=== PATIENT | male | born 1960 | race Caucasian/White ===

== ENCOUNTER 2016-07-14 07:44 | Inpatient (IN) | payer BC ==
--- NOTE | 2016-07-10 08:47 | PREOPHP ---
DATE OF ADMISSION: 07/14/2016 PREOPERATIVE INTERNAL MEDICINE CONSULTATION/MEDICAL HISTORY AND PHYSICAL REASON FOR ADMISSION: The patient to have surgery with Dr. James Galvan 07/14/2016. REASON FOR CONSULTATION: Consultation requested by Dr. James Galvan for medical evaluation and aye arance of a 56-year-old gentleman about to undergo surgery on his lumbar spine. Thank you, Dr. Galvan, for allowing us to participate in the care of this patient. HISTORY OF PRESENT ILLNESS: Lucas Grewal, a 56-year-old gentleman, issues with his back, has had 1 prior back surgery L3-5, is currently being admitted for the decompressive laminectomy at L4. In terms of other past surgeries, he has not had any. He has also had no medical hospitalizations. He has fractured his right heel. ALLERGIES: SENSITIVE TO IBUPROFEN. MEDICATIONS: Currently taking the following medications: 1. Zantac 150 mg a day. 2. Samantha 180 mg a day. SOCIAL HISTORY: The patient is , has 2 children. He does not smoke or drink alcohol, does d rink coffee, is employed and usually has no difficulty sleeping at night. FAMILY HISTORY: Father in his 80s, was a diabetic and of complications of the above. Mot her is 78, had cancer, but survived it, is also a diabetic and 2 siblings are alive. A brother is a lso diabetic. There is a strong family history of diabetes and cancer. No heart, hypertension or s troke to his knowledge. REVIEW OF SYSTEMS HEENT: Denies any significant headaches. CARDIORESPIRATORY: Denies any chest pain or shortness of breath. GASTROINTESTINAL: No melena or hematemesis. GENITOURINARY: No urgency, frequency. MUSCULOSKELETAL: Positive for back pain. NEUROPSYCHIATRIC: Unremarkable. GENERAL HEALTH: As above. PHYSICAL EXAMINATION: VITAL SIGNS: The patient's blood pressure was 122/60, pulse was 60 and regular, respirations were 1 8, temperature 98.2, height 5 feet 8 inches, weight 187 1/2 pounds. GENERAL: The patient was noted to be a well-developed, well-nourished male, alert and cooperative, in no apparent acute distress, oriented to time, place, and person. HEAD, EARS, EYES, NOSE AND THROAT: Head was atraumatic. Eyes: Pupils were equal, reactive to ligh t and accommodation. Fundi were benign. Tympanic membranes were unremarkable. Nose was negative. Mouth was unremarkable. Fair oral hygiene was present. NECK: Supple without any rigidity. Trachea was midline. Thyroid was unremarkable. Neck veins wer e flat. Carotid pulses were equal. No bruits were heard. BACK: Unremarkable. CHEST: Symmetrical. BREASTS AND AXILLARY: Did not reveal any masses. LUNGS: Clear to percussion and auscultation. HEART: PMI is fifth intercostal space at the midclavicular line. Regular sinus rhythm was noted. No significant murmurs, rubs, or gallops being elicited. ABDOMEN: Soft, good bowel sounds were noted. No significant organomegaly, masses, or tenderness. GENITALIA: Normal male external genitalia. RECTAL AND PROSTATIC: Per PCP. EXTREMITIES: Did not reveal any clubbing, edema or cyanosis. Peripheral pulses were physiologic. SKIN: Moist and warm without any eruptions. No gross lymphadenopathy was noted. NEUROLOGIC: Grossly intact. IMPRESSION 1. Lumbar stenosis and lumbar spine disorder, status post lumbar spine surgery. 2. Environmental allergies. 3. Gastroesophageal reflux disease. 4. Stable health. DISCUSSION: Review of laboratory and other data revealed the following: The patient's chemistry pa cindy revealed normal electrolytes, BUN, creatinine and liver function test, calcium being borderline, glucose random nonfasting was 110, but hemoglobin A1c was normal at 5.5. CBC, sed rate, UA, PT, PT T were normal as well. The patient's EKG was normal as was his chest x-ray. DISCUSSION: Dr. Galvan, I see no contraindication in this patient undergoing current proposed ronda francisco under desired form of anesthesia and I feel he is a suitable candidate at this particular point in time and I will be more than happy to follow him with you during his stay at [facility] . Thank you again, Dr. Galvan, for allowing us to participate in care of this patient. Dictated By: JULES PERALTA/FLYNN Conf#: [id number] DID#: [id number]
[~2016-07-14] VITALS: Ht 172.7 cm; Wt 84.0 kg
[2016-07-14] VITALS (30 sets, daily range): BP systolic 90–144; BP diastolic 53–83; PULSE 50–95; RESP 13–21; Ht 172.7 cm; Wt 84.0 kg
[~2016-07-14 07:44] MED LIST: CEFAZOLIN 2 GM/50 ML (PMX) 50 ML IVPB SCH; LACTATED RINGER'S 1,000 ML IV* SCH
[2016-07-14] MEDS ORDERED: PROPOFOL 20 ML ONE (08:22)
[2016-07-14] MEDS ORDERED: LIDOCAINE 2% (SDV) 5 ML INJ ONE (08:22)
[2016-07-14] MEDS ORDERED: GLYCOPYRROLATE 1 MG INJ ONE (08:22)
[2016-07-14] MEDS ORDERED: FENTAnyl 50 MCG/ML VIAL ONE (08:22)
[2016-07-14] MEDS ORDERED: ROCURONIUM 50 MG INJ ONE (08:22)
[2016-07-14] MEDS ORDERED: NEOSTIGMINE 3 MG/3 ML SYRINGE ONE (08:22)
[2016-07-14] MEDS ORDERED: MIDAZOLAM 1 MG/ML 2 ML INJ ONE (08:22)
[2016-07-14] MEDS ORDERED: HYDROmorphONE (0.2 MG/ML) 10ML SYG IV PRN ×2 (08:30)
[2016-07-14] MEDS ORDERED: LABETALOL HCL 20MG INJ IV PRN (08:30)
[2016-07-14] MEDS ORDERED: FENTAnyl 50 MCG/ML VIAL IV PRN (08:30)
[2016-07-14] MEDS ORDERED: MIDAZOLAM 1 MG/ML 2 ML INJ IV PRN (08:30)
[2016-07-14] MEDS ORDERED: DIPHENHYDRAMINE 50 MG INJ IV PRN (08:30)
[2016-07-14] MEDS ORDERED: MEPERIDINE 25 MG INJ IV PRN (08:30)
[2016-07-14] MEDS ORDERED: hydrALAzine 20 MG INJ IV PRN (08:30)
[2016-07-14] MEDS ORDERED: DEXAMETHASONE 4 MG/ML 1 ML INJ ONE (08:30)
[2016-07-14] MEDS ORDERED: OXYCODONE/ACETAMINOPHEN (5/325) TAB PO PRN ×2 (08:30)
[2016-07-14] MEDS ORDERED: ONDANSETRON 4 MG INJ IV PRN ×2 (08:30→14:30)
[2016-07-14] MEDS ORDERED: EPHEDrine SULFATE 50 MG/5 ML SYG IV PRN (08:30)
[2016-07-14] MEDS ORDERED: ONDANSETRON 4 MG INJ ONE ×2 (08:30→12:24)
[2016-07-14] MEDS ORDERED: morphine (1 MG/ML) 10ML SYRINGE IV PRN ×3 (08:30)
[2016-07-14] MEDS ORDERED: ATROPINE 1 MG/10 ML SYRINGE IV PRN (08:30)
[2016-07-14] MEDS ORDERED: RANI150T9 PO (08:50)
[2016-07-14] MEDS ORDERED: FEXO180T61 PO (08:50)
--- NOTE | 2016-07-14 10:59 | HPN ---
Date/Time of Note Date/Time of Note DATE: 07/14/16 TIME: 10:58 Interval H&P Admission Note Pt. seen H&P reviewed: No system changes JIGAR BROOKS MD Jul 14, 2016 10:58
[2016-07-14] MEDS ORDERED: POLYMYXIN/BACITRACIN 1L IRRIG ONE (11:07)
[2016-07-14] MEDS ORDERED: GELATIN SIZE 100 SPONGE ONE (11:07)
[2016-07-14] MEDS ORDERED: THROMBIN 5000 UNIT VIAL ONE (11:07)
[2016-07-14] MEDS ORDERED: BUPIVACAINE 0.25% (MPF) 10 ML 10 ML VIAL ONE (11:07)
[2016-07-14] MEDS ORDERED: LABETALOL HCL 20MG INJ ONE (12:06)
[2016-07-14] MEDS: HYDROmorphONE (0.2 MG/ML) 10ML SYG IV PRN ×3 (14:20→14:49)
--- NOTE | 2016-07-14 14:20 | OPR ---
Date/Time of Note Date/Time of Note DATE: 07/14/16 TIME: 14:14 Operative Report Procedure Date: Jul 14, 2016 Preoperative Diagnosis Severe spinal stenosis at L4 Herniated disc L4-5 on the left Postsurgical changes at L3 and L4 Postoperative Diagnosis Same Operation Performed Redo central decompressive laminectomy at L4 Partial central decompressive laminectomy at L3 Microdiscectomy L4-5 on the left Medial facetectomy and foraminotomy L4-5 bilaterally Revision of scar (12 cm) Lateral localizing lumbar radiographs (2) Intraoperative nerve monitoring (3-1/2 hours) Surgeon: JIGAR BROOKS MD sugar laboratory assistant: RJ ZUÑIGA MD Anesthesia: general Anesthesiologist: HARVEY BAUER MD Estimated Blood Loss: 10 - 50 ml's Specimens Disc material L4-5 on the left Tubes/Drains 2 medium Hemovac drain Complications: None Pt Condition Post Procedure: stable Disposition: PACU Operative\Procedure Findings At surgery, severe stenosis at L4 was confirmed. There was a small to moderate left paracentral herniation of the L4-5 disc. There was marked foraminal stenosis involving the left L5 nerve root. JIGAR BROOKS MD Jul 14, 2016 14:20
[2016-07-14] MEDS ORDERED: PROCHLORPERAZINE 10 MG TAB PO PRN (14:30)
[2016-07-14] MEDS ORDERED: TRIMETHOBENZAMIDE 100 MG/ML VIAL IM PRN (14:30)
[2016-07-14] MEDS ORDERED: ZOLPIDEM 5 MG TAB PO PRN (14:30)
[2016-07-14] MEDS ORDERED: NACL 0.9% 3 ML SYG IV SCH (14:30)
[2016-07-14] MEDS ORDERED: DIAZEPAM 5 MG/ML SYG IM PRN (14:30)
[2016-07-14] MEDS ORDERED: ACETAMINOPHEN 325 MG TAB PO PRN (14:30)
[2016-07-14] MEDS ORDERED: NALOXONE (0.4 MG/ML) INJ IV PRN (14:30)
[2016-07-14] MEDS ORDERED: HYDROCODONE/APAP (5/325) TAB PO PRN ×2 (14:30)
[2016-07-14] MEDS ORDERED: CEPASTAT LOZENGE MT PRN (14:30)
[2016-07-14] MEDS ORDERED: AL HYDROX/MG HYDROX/SIMETH 30 ML CUP PO PRN (14:30)
[2016-07-14] MEDS ORDERED: DIPHENHYDRAMINE 50 MG CAP PO PRN (14:30)
[2016-07-14] MEDS ORDERED: HYDROmorphONE 0.2 MG/ML PCA IV SCH (14:30)
[2016-07-14] MEDS ORDERED: BETHANECHOL 25 MG TAB PO PRN (14:30)
[2016-07-14] MEDS ORDERED: DIAZEPAM 5 MG TAB PO PRN (14:30)
--- NOTE | 2016-07-14 14:34 | RADRPT ---
PROCEDURE: Intraoperative XR. CLINICAL INDICATION: Intraoperative radiograph during L4-5 laminectomy/decompression. TECHNIQUE: Spot intraoperative lateral lumbar x-ray image was provided. The images were reviewed on a high-resolution PACS workstation. COMPARISON: None available FINDINGS: Spot intraoperative lateral lumbar view were provided during L4-5 laminectomy/decompression. The im ages demonstrate metallic probes at the level of L3-4 and L4-5. There is a 30% central compression deformity of the L4 vertebral body. There is a 60% central compression deformity of the L5 vertebra l body, incompletely evaluated.. IMPRESSION: 1. Spot intraoperative lateral lumbar view during L4-5 laminectomy/decompression were provided. 2. Please see operative report of the same day for further information. 3. 60% central compression deformity of the L5 vertebral body, incompletely evaluated. Correlation with prior imaging is recommended. 4. 30% central compression deformity of the L4 vertebral body. Correlation with prior imaging is r ecommended. RPTAT: DD .Elio Jurado MD, MD Date Time Electronically viewed and signed by .Elio Jurado MD, on 07/14/2016 14:34 .S/
--- NOTE | 2016-07-14 14:35 | RADRPT ---
PROCEDURE: Intraoperative XR. CLINICAL INDICATION: Intraoperative radiograph during L4-5 laminectomy/decompression. TECHNIQUE: Spot intraoperative lateral lumbar x-ray image was provided. The images were reviewed on a high-resolution PACS workstation. COMPARISON: None available FINDINGS: Spot intraoperative lateral lumbar view were provided during L4-5 laminectomy/decompression. The im ages demonstrate postoperative changes at the L4-5 level. There is stable appearance of a 30% centr al compression deformity of the L4 vertebral body. There is stable appearance of a 60% central comp ression deformity of the L5 vertebral body, incompletely evaluated.. IMPRESSION: 1. Spot intraoperative lateral lumbar view during L4-5 laminectomy/decompression were provided. 2. Please see operative report of the same day for further information. 3. 60% central compression deformity of the L5 vertebral body, incompletely evaluated. Correlation with prior imaging is recommended. 4. 30% central compression deformity of the L4 vertebral body. Correlation with prior imaging is r ecommended. RPTAT: DD .Elio Jurado MD, MD Date Time Electronically viewed and signed by .Elio Jurado MD, on 07/14/2016 14:34 .S/
[2016-07-14] MEDS: FENTAnyl 50 MCG/ML VIAL IV PRN ×2 (15:00→15:13)
[2016-07-14] MEDS: DEXTROSE 5%-0.45% NACL 1,000 ML IV SCH (18:21)
[2016-07-14] MEDS: CEFAZOLIN 1 GM/50 ML (PMX) 50 ML IVPB SCH (18:22)
[2016-07-14] MEDS: RANITIDINE 150 MG TAB PO SCH (20:43)
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
[2016-07-15] MEDS: DEXTROSE 5%-0.45% NACL 1,000 ML IV SCH ×2 (00:03→06:16)
[2016-07-15] MEDS: CEFAZOLIN 1 GM/50 ML (PMX) 50 ML IVPB SCH ×3 (00:22→11:44)
[2016-07-15 00:30] VITALS: BP 112/60; RESP 18
--- NOTE | 2016-07-15 03:32 | CONS ---
DATE OF ADMISSION: 07/14/2016 DATE OF CONSULTATION: 07/14/2016 POSTOPERATIVE CONSULT FOLLOWUP The patient seen in recovery room postoperatively 07/14/2016. The patient seen in the recovery room after undergoing surgery with Dr. Brooks. The patient was a lert, complaining of some pain, but otherwise doing well. PHYSICAL EXAMINATION: VITAL SIGNS: His blood pressure 100/59, pulse was 50 and regular, respirations 18, temperature 98, O2 saturation 99% nasal O2. HEENT: Unremarkable. LUNGS: Clear to percussion and auscultation. HEART: Revealed a regular rhythm. ABDOMEN: Unremarkable. IMPRESSION: 1. Status post lumbar spine surgery for lumbar spinal stenosis. 2. Gastroesophageal reflux disease. 3. Environmental allergies. 4. Stable health. DISCUSSION: The plan is to continue his medications which included Zantac 150 mg a day and Samantha 180 mg a day, monitor his blood pressure and all his vital signs and his general medical condition. CONDITION: Postoperatively in recovery stable. Thank you again, Dr. Brooks, for allowing us to participate in care of this patient. Dictated By: JULES TUCKER MD SS/NTS Conf#: [id number] DID#: [id number] CC: JIGAR BROOKS MD;*End[facility]*
[2016-07-15 05:46] LABS: HEMATOCRIT 39.9 % (42.0-52.0); HEMOGLOBIN 13.5 g/dl (14.0-18.0)
--- NOTE | 2016-07-15 07:17 | PN ---
Date/Time of Note Date/Time of Note DATE: 07/15/16 TIME: 07:16 Assessment/Plan Lines/Catheters IV Catheter Type (from Nrs): Saline Lock Sorenson in Place (from Nrs): Yes Subjective 24 Hr Interval Summary The patient is postop day #1 following a redo decompressive laminectomy at L4 and decompressive laminectomy at L3. He is afebrile. Neurovascular structures are intact distally. He had 100 cc of output in his Hemovac. He will be getting up with physical therapy. I will discontinue his Sorenson catheter. I will monitor his Hemovac output, and he will be discharged home when the Hemovac output diminishes enough to allow it to be discontinued and he is cleared by physical therapy. Exam/Review of Systems Vital Signs Vitals Vital Signs Date Time Temp Pulse Resp B/P Pulse Ox O2 Delivery O2 Flow Rate FiO2 07/15/16 00:44 19 07/15/16 00:30 97.8 69 112/60 97 07/14/16 20:00 Nasal Cannula 2.0 Intake and Output 07/14/16 07/14/16 07/15/16 15:00 23:00 07:00 Intake Total 1800 ml 1750 ml Output Total 220 ml 50 ml 1900 ml Balance 1580 ml -50 ml -150 ml Results Result Diagram: 07/15/16 0440 JIGAR BROOKS MD Jul 15, 2016 07:17
[2016-07-15 07:44] LABS: CREATININE 0.88 mg/dl (0.61-1.24)
[2016-07-15 07:45] LABS: CALCIUM 8.4 mg/dl (8.4-10.2)
[2016-07-15 07:56] VITALS: BP 105/55; RESP 18
[2016-07-15] MEDS ORDERED: BETHANECHOL 25 MG TAB PO PRN (08:00)
[2016-07-15] MEDS ORDERED: LORATADINE 10 MG TAB PO SCH (09:00)
[2016-07-15] MEDS ORDERED: ASCORBIC ACID 500 MG TAB PO SCH (09:00)
[2016-07-15] MEDS ORDERED: DOCUSATE SODIUM 100 MG CAP PO SCH (09:00)
[2016-07-15] MEDS: FERROUS SULFATE (EC) 325 MG TAB PO SCH ×2 (09:03→12:46)
[2016-07-15] MEDS: RANITIDINE 150 MG TAB PO SCH (09:04)
[2016-07-15 09:44] LABS: ADD UMIC YES; URINE BILIRUBIN (Dip) NEGATIVE (NEGATIVE); URINE BLOOD (Dip) TRACE (NEGATIVE); URINE COLOR LT. YELLOW (YELLOW); URINE GLUCOSE (Dip) NEGATIVE (NEGATIVE); URINE KETONES (Dip) NEGATIVE (NEGATIVE); URINE LEUKOCYTE ESTERASE (Dip) NEGATIVE (NEGATIVE); URINE NITRITE (Dip) NEGATIVE (NEGATIVE); URINE TOTAL PROTEIN (Dip) NEGATIVE (NEGATIVE); URINE UROBILINOGEN (Dip) 0.2 E.U./dL (0.1-1.0)
[2016-07-15 10:03] LABS: URINE RBCS 0-2 /HPF (0)
--- NOTE | 2016-07-15 12:59 | CONS ---
DATE OF ADMISSION: 07/14/2016 DATE OF CONSULTATION: 07/15/2016 POSTOPERATIVE CONSULT FOLLOWUP SUBJECTIVE: The patient is alert this morning, has O2 attached, but is not having any symptoms. He states that his back is doing better, no pain down his legs. PHYSICAL EXAMINATION: VITAL SIGNS: Revealed the following: Blood pressure 105/55, pulse 70 and regular, respirations 18, temperature 98.3, O2 saturation 99% on room air. HEENT: Unremarkable. LUNGS: Clear. HEART: Reveals a regular rhythm. IMPRESSION: 1. Status post lumbar spine surgery. 2. Allergies. 3. Gastroesophageal reflux disease. DISCUSSION: Laboratory and other data reveals a normal hemoglobin and hematocrit. The patient is d oing quite well, will be ambulating today. Management per Dr. Galvan. Thank you again, Dr. Galvan, for allowing us to participate in the care of this patient. Dictated By: JULES TUCKER MD SS/FLYNN Conf#: [id number] DID#: [id number]
== END 2016-07-15 14:25 | disposition home or self-care (01) | DRG 520 ==
LOC: REC 07:44 → MS1 15:40
PROVIDERS: ADMIT Orthopaedic Surgery; ATTEND Orthopaedic Surgery
PROC: 0SB20ZZ Excision of Lumbar Vertebral Disc, Open Approach (ICD-10-PCS; 2016-07-14)
PROC: 01NB0ZZ Release Lumbar Nerve, Open Approach (ICD-10-PCS; principal; 2016-07-14 10:00)
DX: M48.06 Spinal stenosis, lumbar region (principal); M51.16 Intervertebral disc disorders with radiculopathy, lumbar region
CPT/HCPCS: 72020; 80048; 81001; 81003; 85014; 85018; 86850; 86900; 86901; 86920; 87086; 88304; 97116; 97162; J0690; J1100; J1170; J2175; J2250; J2270; J2405; J2710; J3010; J7042